=== PATIENT | female | born 1960 | race Caucasian/White ===

== ENCOUNTER 2018-09-14 19:12 | Inpatient (IN) | payer BC, OTHER ==
[~2018-09-14] VITALS: Ht 177.8 cm; Wt 122.5 kg
[2018-09-14 19:56] LABS: Basophils # (auto) 0.1 uL; Basophils % (auto) 0.7 % (0.0-2.0); Eosinophils # (auto) 0.1 uL; Eosinophils % (auto) 1.5 % (0.0-7.0); Hematocrit 40.8 % (36.0-46.0); Hemoglobin 13.4 g/dL (12.2-16.2); Lymphocytes # (auto) 2.1 uL; Mean Corpuscular Hemoglobin 29.4 pg (28.0-32.0); Mean Corpuscular Hgb Conc. 32.9 g/dL (32.0-36.0); Mean Corpuscular Volume 89.4 fL (80.0-100.0); Monocytes # (auto) 0.6 uL; Monocytes % (auto) 7.5 % (0.0-12.0); Neutrophils # (auto) 5.4 uL; Neutrophils % (auto) 65.3 % (37.0-80.0); Platelet Count (auto) 207 10^3/uL (140-450); Red Blood Cells 4.57 10^6/uL (4.0-5.20); White Blood Cell 8.3 10^3/uL (4.4-10.8)
[2018-09-14 20:10] LABS: Albumin 3.7 g/dL (3.4-5.0); Calcium 8.8 mg/dL (8.5-10.1)
[2018-09-14 20:15] LABS: BUN/Creatinine Ratio 25.3; Bilirubin, Total 0.4 mg/dL (0.2-1.0); Total Protein 7.8 g/dL (6.4-8.2)
[2018-09-14 20:44] LABS: Urine Bacteria MOD /hpf (None Seen); Urine Blood Negative /uL (Negative); Urine Mucus FEW (None Seen); Urine Specific Gravity 1.023 (1.001-1.035); Urine WBC 21 /hpf (0 - 5)
[2018-09-14 20:58] LABS: Alcohol, Urine < 3.0 mg/dL (0-5); Amphetamine Screen, Urine NEGATIVE (NEGATIVE); Barbiturate Scree,Urine NEGATIVE (NEGATIVE); Benzodiazephine Screen, Urine NEGATIVE (NEGATIVE); Cannabinoid Screen, Urine NEGATIVE (NEGATIVE); Cocaine Screen, Urine NEGATIVE (NEGATIVE); Opiate Scree,Urine NEGATIVE (NEGATIVE); Phencyclidine Screen, Urine NEGATIVE (NEGATIVE)
[2018-09-15] VITALS (7 sets, daily range): BP systolic 124–154; BP diastolic 62–95
[2018-09-15] MEDS ORDERED: cefTRIAXone 1GM/50ML D5W 50 ML IV ONE (03:30)
[2018-09-15] MEDS ORDERED: ASPirin 81 mg TAB PO ONE (03:30)
[2018-09-15] MEDS ORDERED: HYDROcodone-ACET 5/325MG TAB PO PRN (04:15)
[2018-09-15] MEDS ORDERED: TEMAZEPAM 15 MG CAP PO PRN (04:15)
[2018-09-15] MEDS ORDERED: ONDANSETRON HCL 4 MG/2 ML VIAL IV PRN (04:15)
[2018-09-15] MEDS ORDERED: cloNIDine HCL 0.1 MG TAB PO PRN (04:15)
[2018-09-15] MEDS ORDERED: ACETAMINOPHEN 325 MG TAB PO PRN (04:15)
[2018-09-15] MEDS ORDERED: ATORVASTATIN 20 MG TAB PO ONE (05:00)
--- NOTE | 2018-09-15 05:00 | NUR ---
MS admit from ER GAIL,JI admitted to tele/MS after SBAR received from [place] [facility] RN. Patient oriented to DAMARIS GATES, primary RN, unit, room 290A, bed, and unit policies regarding patient care and visiting hours. Patient weighed by bedscale and encouraged to call if they need something. All questions and concerns addressed, patient verbalized understanding. Patient is alert and oriented X4, denies any pain or discomfort, no distress noted. Instructed on POC, call light with in reach, bed at its lowest position, side rails up X2.
[2018-09-15] MEDS ORDERED: CARV6.2551 PO (06:03)
--- NOTE | 2018-09-15 07:44 | NUR ---
Opening Shift Note Assumed care of patient, comfortably resting in bed, on room air, breath sounds are even and unlabored. No S/S of distress/SOB or pain. Instructed on POC and to call for assistance PRN. Bed at lowest position and call light within reach. Will continue to monitor for changes Q1hr and PRN.
[2018-09-15] MEDS: ASPirin 81 mg TAB PO SCH (09:08)
[2018-09-15] MEDS: FAMOTIDINE 20 MG TAB PO SCH ×2 (09:08→21:30)
[2018-09-15] MEDS ORDERED: LORazepam 2MG/ML-1ML VIAL IV PRN (10:15)
[2018-09-15 11:34] LABS: Cholesterol 186 mg/dL (< 200); Triglycerides 191 mg/dL (< 150)
[2018-09-15 11:37] LABS: HDL Cholesterol 46 mg/dL (40-59); LDL Cholesterol 121 mg/dL (< 100)
[2018-09-15] MEDS: LEVOFLOXACIN 750MG 150 ML IV SCH (13:58)
--- NOTE | 2018-09-15 18:47 | NUR ---
End of shift note: Patient comfortably sitting up in bed on room air, no s/s of distress/sob noted/stated. No c/o pain. Bed at lowest position and call light within reach. Will endorse care to NOC RN.
--- NOTE | 2018-09-15 19:24 | NUR ---
Opening Shift Note Assumed care of patient, awake and alert x 4. No S/S of distress/SOB or pain. Pupils equal, round, and reactive to light. No slurred speech or loss of muscle control or dexterity in all 4 limbs. Smile even. Bed is in lowest position and locked. Call light within reach. Board updated. Instructed on POC and to call for assist PRN, will continue to monitor for changes Q1hr and PRN.
[2018-09-15] MEDS ORDERED: ATORVASTATIN 20 MG TAB PO SCH (22:00)
[2018-09-16 04:52] VITALS: BP 143/74
[2018-09-16 06:53] LABS: Basophils # (auto) 0 uL; Basophils % (auto) 0.6 % (0.0-2.0); Eosinophils # (auto) 0.1 uL; Eosinophils % (auto) 1.4 % (0.0-7.0); Hematocrit 42.4 % (36.0-46.0); Hemoglobin 13.8 g/dL (12.2-16.2); Lymphocytes # (auto) 2.3 uL; Lymphocytes % (auto) 31.2 % (10.0-50.0); Mean Corpuscular Hgb Conc. 32.5 g/dL (32.0-36.0); Mean Corpuscular Volume 89.4 fL (80.0-100.0); Monocytes # (auto) 0.5 uL; Monocytes % (auto) 7.4 % (0.0-12.0); Neutrophils # (auto) 4.4 uL; Neutrophils % (auto) 59.4 % (37.0-80.0); Platelet Count (auto) 178 10^3/uL (140-450); Red Blood Cells 4.74 10^6/uL (4.0-5.20); Red Cell Distribution Width 14.1 % (11.8-14.3); White Blood Cell 7.5 10^3/uL (4.4-10.8)
[2018-09-16 07:16] LABS: BUN/Creatinine Ratio 19.2; Calcium 9.3 mg/dL (8.5-10.1); Potassium 4.1 mmol/L (3.5-5.1)
--- NOTE | 2018-09-16 07:43 | NUR ---
Opening Shift Note Assumed care of patient, awake and alert X4. Breath sounds even and unlabored on room air, no c/o dizziness/tingling on left side of upper and lower extremities. No c/o pain. No S/S of distress/SOB or pain. Bed at lowest position and call light within reach. Instructed on POC and to call for assistance PRN, will continue to monitor for changes Q1hr and PRN.
[2018-09-16 08:00] VITALS: BP 127/64
[2018-09-16] MEDS: LEVOFLOXACIN 750MG 150 ML IV SCH (10:03)
[2018-09-16] MEDS: ASPirin 81 mg TAB PO SCH (10:03)
[2018-09-16] MEDS: FAMOTIDINE 20 MG TAB PO SCH (10:03)
[2018-09-16 12:00] VITALS: BP 126/70
--- NOTE | 2018-09-16 13:48 | NUR ---
PAGED FOR DR. HOOKS REGARDING PATIENT'S CLEARANCE STATUS. AWAITING CALL BACK.
--- NOTE | 2018-09-16 14:00 | NUR ---
Dr. Bower stated he will be in later.
[2018-09-16 15:58] VITALS: BP 126/70
[2018-09-16 16:00] VITALS: BP 135/77
--- NOTE | 2018-09-16 18:30 | NUR ---
Discharge instructions given as ordered. Encourage to follow up with PMD as instructed. All questions and concerns addressed. Patient verbalized understanding. IV removed with catheter intact, pressure dressing applied. Patient taken to vehicle via wheelchair with all personal belongings, accompanied by staff and family member. No distress noted at time of departure.
== END 2018-09-16 18:30 | disposition home or self-care (01) | DRG 690 ==
LOC: ER 19:16 → WEST WING 09-15 04:32
PROVIDERS: ADMIT Nurse Practitioner; ATTEND Nurse Practitioner
PROC: 5A09357 Assistance with Respiratory Ventilation, Less than 24 Consecutive Hours, Continuous Positive Airway Pressure (ICD-10-PCS; principal; 2018-08-15)
DX: N39.0 Urinary tract infection, site not specified (principal); G45.9 Transient cerebral ischemic attack, unspecified; E66.01 Morbid (severe) obesity due to excess calories; Z68.38 Body mass index [BMI] 38.0-38.9, adult; G56.01 Carpal tunnel syndrome, right upper limb; I10 Essential (primary) hypertension; G47.10 Hypersomnia, unspecified; G45.4 Transient global amnesia; R56.9 Unspecified convulsions; G47.30 Sleep apnea, unspecified; E78.5 Hyperlipidemia, unspecified; R29.810 Facial weakness; Z79.899 Other long term (current) drug therapy; Z88.0 Allergy status to penicillin; Z80.0 Family history of malignant neoplasm of digestive organs; Z79.82 Long term (current) use of aspirin
CPT/HCPCS: 36415; 70450; 70551; 80048; 80053; 80061; 80307; 81001; 82962; 84484; 85025; 93005; 93306; 93886; 94660; 94761; 96365; G0378; J0696; J1956